=== PATIENT | female | born 1950 | race Caucasian/White ===

== ENCOUNTER 2020-05-02 12:59 | Emergency (ER) | payer MEDICARE, BC ==
[~2020-05-02] VITALS: Ht 170.2 cm; Wt 87.6 kg
[2020-05-02] MEDS ORDERED: DIPATR PO (14:54)
[2020-05-02] MEDS ORDERED: ONDA4ODT MM (14:54)
== END 2020-05-02 14:30 | disposition home or self-care (01) ==
LOC: ER 12:59
DX: F41.9 Anxiety disorder, unspecified (principal); Z76.0 Encounter for issue of repeat prescription
CPT/HCPCS: 99281

== ENCOUNTER → 2020-08-09 | Outpatient (CLI) | payer MEDICARE, BC ==
[~2020-08-09] MED LIST: DIPATR PO; ONDA4ODT MM
== END | disposition home or self-care (01) ==
LOC: LAB 14:55 → LAB SHORT 14:55
DX: N39.0 Urinary tract infection, site not specified (principal)
CPT/HCPCS: 87077; 87086; 87186

== ENCOUNTER → 2020-12-05 | Outpatient (CLI) | payer MEDICARE, BC ==
[~2020-12-05] MED LIST changes: +ALLO300 PO; +CLON1 PO; +DULO60 PO; +KLOR-CON M1010 MEQ PO; +LEVSOD75 PO; +METO5 PO; +OMEP20ER PO; +OXYB5 PO; +PANT40 PO; +QUET300 PO
== END ==
LOC: LAB SHORT 18:03 → LAB 18:03
DX: S91.102A Unspecified open wound of left great toe without damage to nail, initial encounter (principal); N39.0 Urinary tract infection, site not specified
CPT/HCPCS: 87070; 87075; 87077; 87086; 87186; 87205

== ENCOUNTER 2021-01-21 06:45 | Day surgery (SDC) | payer MEDICARE, BC ==
[~2021-01-21] VITALS: Ht 165.1 cm; Wt 87.2 kg
[~2021-01-21 06:45] MED LIST changes: -PANT40 PO
[2021-01-21] MEDS ORDERED: PANT40 PO (07:09)
== END 2021-01-21 09:01 | disposition home or self-care (01) ==
LOC: ORSCSDS 06:45
PROVIDERS: Ophthalmology
PROC: 08RK3JZ Replacement of Left Lens with Synthetic Substitute, Percutaneous Approach (ICD-10-PCS; principal; 2021-01-21 08:00)
DX: H25.12 Age-related nuclear cataract, left eye (principal); I10 Essential (primary) hypertension; K21.9 Gastro-esophageal reflux disease without esophagitis; E66.9 Obesity, unspecified; Z68.32 Body mass index [BMI] 32.0-32.9, adult; Z79.899 Other long term (current) drug therapy
CPT/HCPCS: A9270; J2001; J2250; J3010; J3301; J7040; V2632

== ENCOUNTER 2021-03-06 06:46 | Day surgery (SDC) | payer MEDICARE, BC ==
[~2021-03-06] VITALS: Ht 165.1 cm; Wt 87.4 kg
[~2021-03-06 06:46] MED LIST changes: +PANT40 PO
== END 2021-03-06 08:50 | disposition home or self-care (01) ==
LOC: ORSCSDS 06:46
PROVIDERS: Ophthalmology
PROC: 08RJ3JZ Replacement of Right Lens with Synthetic Substitute, Percutaneous Approach (ICD-10-PCS; principal; 2021-03-06 08:00)
DX: H25.11 Age-related nuclear cataract, right eye (principal); I10 Essential (primary) hypertension; K21.9 Gastro-esophageal reflux disease without esophagitis; N18.30 Chronic kidney disease, stage 3 unspecified; E03.9 Hypothyroidism, unspecified; Z79.899 Other long term (current) drug therapy
CPT/HCPCS: A9270; J2001; J2250; J3010; J3301; J7040; J7120; V2632

== ENCOUNTER → 2021-06-05 | Outpatient (CLI) | payer MEDICARE, BC | END | disposition home or self-care (01) | LOC: LAB 16:05 | DX: Z51.81 Encounter for therapeutic drug level monitoring (principal); Z79.899 Other long term (current) drug therapy ==

== ENCOUNTER → 2021-07-31 | Outpatient (CLI) | payer MEDICARE, BC | LOC: LAB 15:59 → LAB SHORT 15:59 | DX: N18.30 Chronic kidney disease, stage 3 unspecified (principal); D63.1 Anemia in chronic kidney disease; N25.81 Secondary hyperparathyroidism of renal origin; E55.9 Vitamin D deficiency, unspecified; E78.00 Pure hypercholesterolemia, unspecified; R76.9 Abnormal immunological finding in serum, unspecified; R94.5 Abnormal results of liver function studies; R94.6 Abnormal results of thyroid function studies; D51.8 Other vitamin B12 deficiency anemias; D52.8 Other folate deficiency anemias; D60.9 Acquired pure red cell aplasia, unspecified | CPT/HCPCS: 86335 ==

== ENCOUNTER → 2021-09-15 | Outpatient (CLI) | payer MEDICARE, BC ==
[2021-09-15 14:23] LABS: International Normalized Ratio 0.98; Prothrombin Time Results 10.3 Sec (9.7-11.5)
[2021-09-15 15:34] LABS: BASOPHILS ABSOLUTE AUTO 0.04 K/mm3 (0.00-0.23); BASOPHILS PERCENT AUTO 1 % (0-2); EOSINOPHILS ABSOLUTE AUTO 0.17 K/mm3 (0.00-0.68); EOSINOPHILS PERCENT AUTO 3 % (0-6); Hematocrit 33.1 % (33.0-51.0); Hemoglobin 10.6 g/dL (11.5-16.0); IMMATURE GRAN ABSOLUTE AUTO 0.01 K/mm3 (0.00-0.10); IMMATURE GRAN PERCENT AUTO 0 % (0-1); LYMPHOCYTES ABSOLUTE AUTO 1.61 K/mm3 (0.84-5.20); LYMPHOCYTES PERCENT AUTO 27 % (21-46); MONOCYTES PERCENT AUTO 8 % (4-13); Mean Corpuscular HGB 31.3 pg (26.0-34.0); Mean Corpuscular Volume 98 fL (80-100); Mean Platelet Volume 11.5 fL (9.1-12.4); NEUTROPHILS ABSOLUTE AUTO 3.66 K/mm3 (1.96-9.15); NEUTROPHILS PERCENT AUTO 61 % (41-73); Platelet Count 366 K/mm3 (150-400); RDW Coefficient Variation 13.8 % (11.7-14.2); RDW Standard Deviation 49.3 fL (35.1-46.3); Red Blood Cell Count 3.39 M/mm3 (3.80-5.20); White Blood Cell Count 5.99 K/mm3 (4.00-11.30)
== END | disposition home or self-care (01) ==
LOC: LAB SHORT 11:00
PROVIDERS: Physician Assistant
DX: M54.50 Low back pain, unspecified (principal); N18.9 Chronic kidney disease, unspecified
CPT/HCPCS: 85025; 85610; 85730

== ENCOUNTER → 2022-09-26 | Outpatient (CLI) | payer MEDICARE | END | disposition home or self-care (01) | LOC: LAB 09:28 → LAB SHORT 09:28 | PROVIDERS: Internal Medicine Nephrology | DX: N18.30 Chronic kidney disease, stage 3 unspecified (principal); D63.1 Anemia in chronic kidney disease; N25.81 Secondary hyperparathyroidism of renal origin; E55.9 Vitamin D deficiency, unspecified; E78.00 Pure hypercholesterolemia, unspecified; R76.9 Abnormal immunological finding in serum, unspecified; R94.5 Abnormal results of liver function studies; R94.6 Abnormal results of thyroid function studies | CPT/HCPCS: 81050 ==

== ENCOUNTER 2023-03-10 10:23 | Day surgery (SDC) | payer MEDICARE ==
[~2023-03-10] VITALS: Ht 170.2 cm; Wt 91.3 kg
[2023-03-10] VITALS (12 sets, daily range): BP systolic 96–139; BP diastolic 49–95
[~2023-03-10 10:23] MED LIST changes: +POTA10T PO
--- NOTE | 2023-03-10 11:20 | NUR ---
Ambulatory in Day Surgery.Pt. has mild dementia at baseline. Occasionally, confused. Currently, A&O x 4. History, Chart, Medications and Allergies reviewed before start of procedure.Patient confirms NPO status and agrees with scheduled surgery. Patient confirms NPO status and agrees with scheduled surgery. Patient reports completing Chlorhexadine shower X2 prior to admission to hospital. Surgical site prepped with 2% Chlorhexidine cloth wipe.
--- NOTE | 2023-03-10 14:44 | NUR ---
03/10/23 1444 Tianna Grant VANCOMYCIN 1GM GIVEN IN PERIOP PRIOR TO COMING BACK TO THE OR
--- NOTE | 2023-03-10 17:28 | NUR ---
PATIENT CAME BACK AT 1655 FROM PACU TODAY. POD 0 RIGHT TOTAL HIP PATIENT IS A&OX4. VS ARE WNL AND IS ON RA. PATIENT HAD A SPINAL DURING PROCEDURE AND IS REPORTING NUMBNESS FROM THE WAIST DOWN WITH NO PAIN. PEDAL PULSES ARE STRONG AND WARM TO THE TOUCH. ON HER RIGHT HIP SHE HAS 2 INCISIONS WITH FOAM AND GAUZE THAT IS C/D/I. PATIENT IS TOLERATING PO INTAKE. AT BEDSIDE. PATIENT IS LAYING IN BED WITH CALL LIGHT IN REACH.
[2023-03-11 00:11] VITALS: BP 115/70
[2023-03-11 04:16] VITALS: BP 138/81
[2023-03-11 04:29] LABS: BASOPHILS ABSOLUTE AUTO 0.01 K/mm3 (0.00-0.23); BASOPHILS PERCENT AUTO 0 % (0-2); EOSINOPHILS PERCENT AUTO 0 % (0-6); Hematocrit 30.3 % (33.0-51.0); Hemoglobin 10.1 g/dL (11.5-16.0); IMMATURE GRAN ABSOLUTE AUTO 0.08 K/mm3 (0.00-0.10); IMMATURE GRAN PERCENT AUTO 1 % (0-1); LYMPHOCYTES ABSOLUTE AUTO 0.51 K/mm3 (0.84-5.20); LYMPHOCYTES PERCENT AUTO 4 % (21-46); MONOCYTES PERCENT AUTO 5 % (4-13); Mean Corpuscular HGB 31.6 pg (26.0-34.0); Mean Corpuscular HGB Conc 33.3 g/dL (31.5-36.5); Mean Corpuscular Volume 95 fL (80-100); Mean Platelet Volume 9.9 fL (9.1-12.4); NEUTROPHILS ABSOLUTE AUTO 12.26 K/mm3 (1.96-9.15); NEUTROPHILS PERCENT AUTO 91 % (41-73); Platelet Count 396 K/mm3 (150-400); RDW Coefficient Variation 13.7 % (11.7-14.2); RDW Standard Deviation 47.6 fL (35.1-46.3); White Blood Cell Count 13.46 K/mm3 (4.00-11.30)
[2023-03-11 04:46] LABS: Calcium, Blood 9.4 mg/dL (8.5-10.1); Creatinine, Blood 1.12 mg/dL (0.40-1.00); Magnesium, Blood 1.6 mg/dL (1.6-2.4); Potassium, Blood 5.5 mmol/L (3.5-5.5)
--- NOTE | 2023-03-11 05:16 | NUR ---
SHIFT SUMMARY POD1 RIGHT MUKUND. DRESSINGS ARE C/D/I, BOTTOM DRESSING CHANGED D/T THE PT REMOVING IT WHILE SLEEPING. TOP DRESSING REINFORCED. SENSATION AND CIRCULATION REMAINS INTACT IN RLE. VSS. PT SLEPT WELL T/O THE NIGHT. MEDICATED FOR PAIN WTIH PRN AND SCHEDULED. PT AMBULATED TO THE BATHROOM MULTIPLE TIMES TO VOID T/O THE NIGHT, AND WAS ABLE TO AMBULATE TO THE HALLWAY ONCE WITH MINIMAL ASSISTANCE. PT REFUSED TO USE CRYO T/O THE NIGHT, BUT WAS AGREEABLE TO TRY IT DURING AM VITALS. NO ACUTE EVENTS NOTED. PLAN FOR PT TO WORK WITH PT THIS AM AND D/C HOME. THE PATIENT IS CURRENTLY RESTING, IN NO DISTRESS, CALL LIGHT IN REACH.
[2023-03-11 07:00] VITALS: BP 137/69
--- NOTE | 2023-03-11 07:45 | NUR ---
IN WITH PT TO CHANGE DRESSINGS
--- NOTE | 2023-03-11 11:43 | NUR ---
DISCHARGE SUMMARY POD 1 R TOTAL POSTERIOR HIP. DRESSING CHANGED THIS MORNING BY DR. KO DRESSINGS C/D/I. PT A&0X4. VS WNL AND SAT ABOVE 95% ON RA. DRESSED IN OWN CLOTHING WITH ALL PERSONAL BELONGINGS. LINES REMOVED. AMBULATING WITH FRONT WHEELED WALKER. POST OP EDUCATION GIVEN TO PT. PT NOT RECEPTIVE. PT STATES "I WILL DO IT MY OWN WAY", NOT FOLLOWING PRECAUTIONS: BENDING MORE THAN 90 DEGREES AT THE HIP, CROSSING LEGS. EDUCATION REINFORCED ON IMPORTANCE OF PRECAUTIONS. DISHCAGE INFORMATION GIVEN: HIP PRECAUSTION, PHYSCIAL THERAPY/DR FOLLOW-UP. PT D/C VIA WHEELCHAIR TO POV.
--- NOTE | 2023-03-11 14:25 | NUR ---
POSTERIOR HIP PRECAUTIONS PATIENT DID NOT WORK WELL WITH PT/OT DUE TO NOT FOLLOWING POSTERIOR HIP PRECAUTIONS. PATIENT WAS EDUCATED BY NURSING STAFF, SURGEON, PT, OT, QUALITY CONTROL CLERK, AND ORTHO DIRECTOR ON THE IMPORTANCE OF OBSERVING POSTERIOR HIP PRECAUTIONS AND HOW THEY ARE DIFFERENT THAN AN ANTERIOR APPROACH INCLUDING RISK OF DISLOCATING THE NEW JOINT AND WHAT THAT COULD LEAD DO IF IT HAPPENS. PATIENT KEPT INSISTING THAT SHE HAD DONE THIS BEFORE WITH HER LAST MUKUND AND SHE KNEW WHAT SHE WAS DOING AND THAT SHE WAS GOING TO DO IT HER WAY REGARDLESS OF WHAT WE WERE TELLING HER. SHE REPORTED BEING ANNOYED WITH STAFF REPEATING THE DIRECTIONS EVEN THOUGH SHE WAS ALSO EDUCATED ON THE REASON IT WAS REPEATED AND THAT IT WAS FOR HER SAFETY AND FOR THE BEST POSSIBLE OUTCOME FOR HER RECOVERY. DESPITE ALL THIS EDUCATION, SHE CONTINUED TO INSIST ON DOING IT HER OWN WAY.
== END 2023-03-11 11:44 | disposition home or self-care (01) ==
LOC: ORSCMMR 10:23 → ORD 14:15 → ORSCMMR 14:15 → SURS 16:40 → ORSCMMR 03-11 11:44 → ORD 03-17 14:30
PROVIDERS: Orthopaedic Surgery
PROC: 0SR90JA Replacement of Right Hip Joint with Synthetic Substitute, Uncemented, Open Approach (ICD-10-PCS; principal; 2023-03-10 14:15)
DX: M16.11 Unilateral primary osteoarthritis, right hip (principal); Z96.642 Presence of left artificial hip joint; Z96.653 Presence of artificial knee joint, bilateral; E03.9 Hypothyroidism, unspecified; F41.9 Anxiety disorder, unspecified; E66.9 Obesity, unspecified; Z68.35 Body mass index [BMI] 35.0-35.9, adult; F03.90 Unspecified dementia, unspecified severity, without behavioral disturbance, psychotic disturbance, mood disturbance, and anxiety; Z79.899 Other long term (current) drug therapy
CPT/HCPCS: 36415; 72170; 80048; 83735; 85025; 97110; 97116; 97162; 97165; 97530; 97535; A9270; C1713; C1776; J0171; J0690; J0735; J1100; J1885; J2250; J2405; J2704; J2795; J3010; J3370; J7050; J7120

== ENCOUNTER 2023-04-16 08:20 | Emergency (ER) | payer MEDICARE ==
[~2023-04-16] VITALS: Ht 172.7 cm; Wt 124.7 kg
[2023-04-16] MEDS ORDERED: Norco 5-325 Ta1 EACH PO (11:47)
[2023-04-16 12:31] VITALS: BP 136/67
== END 2023-04-16 12:32 | disposition home or self-care (01) ==
LOC: ER 08:20
DX: T84.020A Dislocation of internal right hip prosthesis, initial encounter (principal); W18.11XA Fall from or off toilet without subsequent striking against object, initial encounter; Y92.002 Bathroom of unspecified non-institutional (private) residence as the place of occurrence of the external cause
CPT/HCPCS: 27266; 73501; 73502; 73562-RT; 99284-25; A9270; J2704; J7030

== ENCOUNTER 2023-04-17 10:45 | Inpatient (IN) | payer MEDICARE ==
[~2023-04-17] VITALS: Ht 165.1 cm; Wt 95.0 kg
[~2023-04-17 10:45] MED LIST changes: +Norco 5-325 Ta1 EACH PO
[2023-04-17 11:16] LABS: BASOPHILS ABSOLUTE AUTO 0.05 K/mm3 (0.00-0.23); BASOPHILS PERCENT AUTO 1 % (0-2); EOSINOPHILS ABSOLUTE AUTO 0.18 K/mm3 (0.00-0.68); EOSINOPHILS PERCENT AUTO 2 % (0-6); Hematocrit 29.3 % (33.0-51.0); Hemoglobin 9.7 g/dL (11.5-16.0); IMMATURE GRAN ABSOLUTE AUTO 0.03 K/mm3 (0.00-0.10); IMMATURE GRAN PERCENT AUTO 0 % (0-1); LYMPHOCYTES ABSOLUTE AUTO 2.04 K/mm3 (0.84-5.20); LYMPHOCYTES PERCENT AUTO 23 % (21-46); MONOCYTES ABSOLUTE AUTO 0.72 K/mm3 (0.16-1.47); MONOCYTES PERCENT AUTO 8 % (4-13); Mean Corpuscular HGB 31.7 pg (26.0-34.0); Mean Corpuscular HGB Conc 33.1 g/dL (31.5-36.5); Mean Corpuscular Volume 96 fL (80-100); Mean Platelet Volume 10.2 fL (9.1-12.4); NEUTROPHILS ABSOLUTE AUTO 5.71 K/mm3 (1.96-9.15); NEUTROPHILS PERCENT AUTO 65 % (41-73); Platelet Count 334 K/mm3 (150-400); RDW Coefficient Variation 14.6 % (11.7-14.2); RDW Standard Deviation 50.6 fL (35.1-46.3); Red Blood Cell Count 3.06 M/mm3 (3.80-5.20); White Blood Cell Count 8.73 K/mm3 (4.00-11.30)
[2023-04-17 11:37] LABS: Albumin, Blood 3.4 g/dL (3.4-5.0); Bilirubin, Total 0.4 mg/dL (0.1-1.0); Bun/Creatinine Ratio 14.8 (12.0-20.0); Calcium, Blood 9.1 mg/dL (8.5-10.1); Creatinine, Blood 1.35 mg/dL (0.40-1.00); Globulin, Blood 3.4 g/dL (2.2-4.0); Potassium, Blood 4.1 mmol/L (3.5-5.5); Total Protein, Blood 6.8 g/dL (6.4-8.2)
[2023-04-17 18:11] VITALS: BP 136/53
--- NOTE | 2023-04-17 18:15 | NUR ---
ARRIVAL PATIENT TO ROOM 213 VIA GURNEY. TRANSFERRED TO BED VIA SLIDER SHEET, CHANGED IN TO [facility]. IMMOBILIZERTO RIGHT KNEE REMOVED TO ASSES SKIN AND REPLACED WAS. PATIENT A&O X4, LUNGS CLEAR, DIM IN BASES, VSS ON RA. DECLINED DINNER TRAY, ASKED FOR JELLO INSTEAD. IV TO Yumi BIRCH, TRUONG PER ORDERS. PATIENT DECLINES PAIN MEDS AT THIS TIME. ORIENTED TO ROOM & CALL LIGHT, IN REACH. WILL REPORT TO ONCOMING RN AT 1900.
--- NOTE | 2023-04-17 18:30 | NUR ---
DR MAGALLANES NOTIFIED THIS RN OF UNSUCCESSFUL ARTHOCENTESIS OF R HIP (PER REQUEST OF DR MEZA) & WAS UNALE TO REACH DR MEZA AT TIME, MESSAGE LEFT.
[2023-04-17 19:47] VITALS: BP 139/69
[2023-04-18 03:16] VITALS: BP 111/93
[2023-04-18 03:27] LABS: BASOPHILS ABSOLUTE AUTO 0.05 K/mm3 (0.00-0.23); BASOPHILS PERCENT AUTO 1 % (0-2); EOSINOPHILS ABSOLUTE AUTO 0.32 K/mm3 (0.00-0.68); EOSINOPHILS PERCENT AUTO 4 % (0-6); Hematocrit 26.9 % (33.0-51.0); Hemoglobin 8.8 g/dL (11.5-16.0); IMMATURE GRAN ABSOLUTE AUTO 0.01 K/mm3 (0.00-0.10); IMMATURE GRAN PERCENT AUTO 0 % (0-1); LYMPHOCYTES ABSOLUTE AUTO 1.68 K/mm3 (0.84-5.20); LYMPHOCYTES PERCENT AUTO 20 % (21-46); MONOCYTES ABSOLUTE AUTO 0.94 K/mm3 (0.16-1.47); MONOCYTES PERCENT AUTO 11 % (4-13); Mean Corpuscular HGB 31.2 pg (26.0-34.0); Mean Corpuscular HGB Conc 32.7 g/dL (31.5-36.5); Mean Corpuscular Volume 95 fL (80-100); NEUTROPHILS ABSOLUTE AUTO 5.38 K/mm3 (1.96-9.15); NEUTROPHILS PERCENT AUTO 64 % (41-73); Platelet Count 293 K/mm3 (150-400); RDW Coefficient Variation 14.5 % (11.7-14.2); RDW Standard Deviation 50.2 fL (35.1-46.3); Red Blood Cell Count 2.82 M/mm3 (3.80-5.20); White Blood Cell Count 8.38 K/mm3 (4.00-11.30)
[2023-04-18 03:44] LABS: Bun/Creatinine Ratio 14.7 (12.0-20.0); Calcium, Blood 8.6 mg/dL (8.5-10.1); Creatinine, Blood 0.96 mg/dL (0.40-1.00)
--- NOTE | 2023-04-18 06:41 | NUR ---
SHIFT SUMMARY R HIP DISLOCATION FOLLOWING R TOTAL HIP 03/10. PT DENIES N/T, PEDAL PULSES PALPITABLE. IMMOBILIZER TO R LEG. VSS, MEDICATED FOR PAIN X2 T/O NIGHT. JOE DRAINING LARGE AMT YELLOW URINE. PO INTAKE TOLERATED WELL, NO N/V REPORTED. F/U W/ DR MEZA FOR FURTHER TX PLANS. PT SLEPT T/O NIGHT, NO DISTRESS, CALL LIGHT W/IN REACH.
[2023-04-18 07:16] VITALS: BP 103/47
[2023-04-18 07:17] VITALS: BP 105/46
[2023-04-18 08:13] VITALS: BP 112/52
--- NOTE | 2023-04-18 10:49 | NUR ---
AT BEDSIDE DR MAGALLANES AT BEDSIDE. THIS RN DISCUSSED REDNESS NOTED TO RIGHT HIP, NO NEW ORDERS GIVEN REGARDING THIS, PLAN TO KEEP AN EYE ON IT & CONTINUE TO REASSESS T/O SHIFT. DR MAGALLANES STATED THE IMMOBILIZER TO R KNEE COULD BE REMOVED, MD WAS USNURE WHY IT WAS PLACED INITIALLY. THIS RN REMOVED AT THIS TIME. PLAN TO WAIT FOR DR MEZA TO SEE PATIENT.
--- NOTE | 2023-04-18 10:59 | NUR ---
PATIENT STATED TO THIS RN "I DONT KNOW WHY THIS SURGERY HAD TO BE SO FAR BACK ON MY HIP AND NOW LOOK ITS CAUSED SO MANY PROBLEMS. WHY COULDNT HE JUST DO IT UP HERE LIKE THE LAST HIP". THIS RN EXPLAINED THERE ARE DIFFERENT APPROACHES WITH DIFFERENT INDICATIONS/REASONINGS FOR HIP REPLACEMENTS. PATIENT ROLLED HER EYES AND STATED "WELL THIS ONE IS NOTHING LIKE THE LAST ONE". THIS RN EMPHASIZED THE IMPORTANCE OF FOLLOWING THE POSTERIOR HIP PRECAUTIONS STRICTLY FOR 3 MONTHS FOLLOWING THE SURGERY & EXPLAINED THE 3 PRECAUTIONS. THE PATIENT STATED, "WHAT DO YOU MEAN I WASNT SUPPOSED TO BEND PAST 90 DEGREES". THIS RN DEMONSTARTED AND PATIENT ROLLED HER EYES & LAUGHED STATING "I DO THE BEST I CAN AT HOME, I HAVE TO SIT AND STAND, I HAVE TO PUT MY SOCKS ON. THEY TRIED TELLING ME ALL THAT WHEN I WAS HERE BUT I DID WHAT I HAD TO DO". THIS RN ENDED THE DISCUSSION WITH STATING "WE WILL SEE WHAT THE PLAN FROMTHE ORTHOPEDIC DOCTOR WILL BE MOVING FORWARD".
[2023-04-18 14:44] VITALS: BP 106/73
--- NOTE | 2023-04-18 18:34 | NUR ---
SHIFT SUMMARY NO ACUTE CHANGES THIS SHIFT. RIGHT HIP DISLOCATION, AWAITING PLAN FROM ORTHO DOCTOR, MESSAGE WAS LEFT WITH DR MEZA. REDNESS NOTED TO R HIP AROUND MUKUND SCAR. PAIN MANAGED PER EMAR. EATING & DRINKING WELL. JOE CATH INPLACE DRAINING WELL TO GRAVITY. CALLS DAVIDE, IN REACH. WILL REPORT TO ONCOMING RN AT 1900.
[2023-04-18 19:14] VITALS: BP 127/80
[2023-04-19] VITALS (16 sets, daily range): BP systolic 122–158; BP diastolic 52–100
--- NOTE | 2023-04-19 06:37 | NUR ---
SHIFT SUMMARY HIP DISPLACEMENT, AWAITING ORTHO CONSULT. PT DENIES N/T, N/V, OR SOB. PEDAL PULSES PALPITABLE BL, WARM TO TOUCH. MEDICATED FOR PAIN X1 THIS SHIFT. PT REQUESTING CLONAZEPAM AND ENCOURAGED TO ALTERNATE W/ PAIN MEDS. PT AGREED. REPORTS SOME ANXIETY R/T PCP VISIT AND PLANS. IMMOBILIZER IN PLACE TO RIGHT LEG, REDNESS AND SWELLING TO RIGHT HIP SURROUNDING SURGICAL SCAR. OUTLINED FOR MEASUREMENTS, AND APPEARS TO HAVE DECREASED T/O NIGHT. NO DISTRESS THIS SHIFT, CALL LIGHT W/IN REACH.
[2023-04-19 09:06] LABS: BASOPHILS ABSOLUTE AUTO 0.04 K/mm3 (0.00-0.23); BASOPHILS PERCENT AUTO 0 % (0-2); EOSINOPHILS ABSOLUTE AUTO 0.21 K/mm3 (0.00-0.68); EOSINOPHILS PERCENT AUTO 2 % (0-6); Hematocrit 26.7 % (33.0-51.0); Hemoglobin 8.8 g/dL (11.5-16.0); IMMATURE GRAN ABSOLUTE AUTO 0.03 K/mm3 (0.00-0.10); IMMATURE GRAN PERCENT AUTO 0 % (0-1); LYMPHOCYTES ABSOLUTE AUTO 1.54 K/mm3 (0.84-5.20); LYMPHOCYTES PERCENT AUTO 17 % (21-46); MONOCYTES ABSOLUTE AUTO 0.92 K/mm3 (0.16-1.47); MONOCYTES PERCENT AUTO 10 % (4-13); Mean Corpuscular HGB 31.4 pg (26.0-34.0); Mean Corpuscular Volume 95 fL (80-100); NEUTROPHILS ABSOLUTE AUTO 6.17 K/mm3 (1.96-9.15); NEUTROPHILS PERCENT AUTO 69 % (41-73); Platelet Count 342 K/mm3 (150-400); RDW Coefficient Variation 14.6 % (11.7-14.2); RDW Standard Deviation 50.3 fL (35.1-46.3); White Blood Cell Count 8.91 K/mm3 (4.00-11.30)
[2023-04-19 09:21] LABS: Anion Gap 6 mmol/L (6-16); Blood Urea Nitrogen 12 mg/dL (8-24); Bun/Creatinine Ratio 13.4 (12.0-20.0); CO2, Blood 27 mmol/L (21-32); Calcium, Blood 8.9 mg/dL (8.5-10.1); Chloride, Blood 101 mmol/L (98-108); Creatinine, Blood 0.89 mg/dL (0.40-1.00); Glomerular Filtration Rate 68 (60-); Glucose, Blood 99 mg/dL (70-99); Phosphorus, Blood 3.1 mg/dL (2.5-4.9); Potassium, Blood 4.2 mmol/L (3.5-5.5); Sodium, Blood 134 mmol/L (136-145)
--- NOTE | 2023-04-19 14:25 | NUR ---
Surgical site prepped with 2% Chlorhexidine cloth wipe. History, Chart, Medications and Allergies reviewed before start of procedure.Lungs clear T/O to Auscultation. Patient confirms NPO status and agrees with scheduled surgery. DID NOT PUT ON PAS OR TREE HOSE DUE TO PAIN.
[2023-04-19 15:45] LABS: PCO2 Arterial 40.2 mmHg (35-45); PO2 Arterial 461 mmHg (80-100)
[2023-04-19 16:31] LABS: PCO2 Arterial 42.3 mmHg (35-45); PO2 Arterial 358 mmHg (80-100); pH Blood Arterial 7.38 (7.35-7.45)
[2023-04-19 17:04] LABS: BODY FLUID RBC 0.964 M/mm3 (0-0)
[2023-04-19 17:40] LABS: WBC Count, Synovial Fluid 10240 /mm3 (0-180)
[2023-04-19 17:41] LABS: RBC Count, Synovial Fluid 964000 /mm3 (0-0)
[2023-04-19 17:51] LABS: Appearance, Synovial Fluid Bloody (Clear); Color, Synovial Fluid Red (None-P Yel)
[2023-04-19 18:28] LABS: Eos, Synovial Fluid 1 % (0-2); Lymphs, Synovial Fluid 4 % (0-15); Monocytes/Macrophages, Synovia 3 % (0-65); Neutrophils, Synovial Fluid 94 % (0-24)
--- NOTE | 2023-04-19 19:27 | NUR ---
SHIFT SUMMARY PT WENT TO O.R. AT 1330. SHE WAS A&OX4, VSS/RA, NPO, PAIN MANAGED, AT BEDSIDE. PT RETURNED FROM O.R. AT 1900, REPORT TO RACHANA ENRIQUEZ.
[2023-04-19 20:06] LABS: Hematocrit 27.1 % (33.0-51.0)
[2023-04-20 00:06] VITALS: BP 131/60
[2023-04-20 04:08] LABS: BASOPHILS ABSOLUTE AUTO 0.02 K/mm3 (0.00-0.23); BASOPHILS PERCENT AUTO 0 % (0-2); EOSINOPHILS PERCENT AUTO 0 % (0-6); Hemoglobin 7.9 g/dL (11.5-16.0); IMMATURE GRAN PERCENT AUTO 1 % (0-1); LYMPHOCYTES ABSOLUTE AUTO 0.79 K/mm3 (0.84-5.20); LYMPHOCYTES PERCENT AUTO 8 % (21-46); MONOCYTES ABSOLUTE AUTO 0.56 K/mm3 (0.16-1.47); MONOCYTES PERCENT AUTO 6 % (4-13); Mean Corpuscular HGB 31.3 pg (26.0-34.0); Mean Corpuscular HGB Conc 34.3 g/dL (31.5-36.5); Mean Corpuscular Volume 91 fL (80-100); Mean Platelet Volume 10.5 fL (9.1-12.4); NEUTROPHILS ABSOLUTE AUTO 8.37 K/mm3 (1.96-9.15); NEUTROPHILS PERCENT AUTO 85 % (41-73); Platelet Count 348 K/mm3 (150-400); RDW Standard Deviation 46.8 fL (35.1-46.3); Red Blood Cell Count 2.52 M/mm3 (3.80-5.20); White Blood Cell Count 9.84 K/mm3 (4.00-11.30)
[2023-04-20 04:46] VITALS: BP 134/68
--- NOTE | 2023-04-20 04:58 | NUR ---
SHIFT SUMMARY A/O X4- BEDREST THROUGHOUT SHIFT- POD1 R TOTAL HIP REVISION, FOAM BULKY TAPE DRESSING IN PLACE, C/D/I. VITAL SIGNS STABLE. PAIN MANAGED W/ PO PAIN MEDICATIONS. IMMOBILIZER AND WEDGE IN PLACE THROUGHOUT SHIFT. PLEASANT AND COOPERATIVE W/ CARE. WILL REPORT TO ONCOMING RN.
[2023-04-20 05:32] LABS: Bun/Creatinine Ratio 14.1 (12.0-20.0); Calcium, Blood 8.3 mg/dL (8.5-10.1); Creatinine, Blood 0.92 mg/dL (0.40-1.00); Magnesium, Blood 1.5 mg/dL (1.6-2.4); Potassium, Blood 4.9 mmol/L (3.5-5.5)
[2023-04-20 07:00] VITALS: BP 147/69
--- NOTE | 2023-04-20 10:33 | NUR ---
04/20/23 1033 Gris Montoya VERIFICATIONS: EDIT CHART.
[2023-04-20 14:02] LABS: Vancomycin, Random 21.1 ug/mL
[2023-04-20 15:56] VITALS: BP 125/65
--- NOTE | 2023-04-20 17:15 | NUR ---
SHIFT SUMMARY PT A&OX4, VSS/RA, CHEKO PO, VOIDING POST-JOE REMOVAL TODAY/INCONTINENT-ATTENDS ON, PAIN MANAGED, AMB MOD ASSIST WITH FWW/GB/UP TO CHAIR. PICC BEING PLACED AT THIS TIME; NO OTHER IV ACCESS AT THIS TIME. WILL REPORT TO NEXT RN.
[2023-04-20 19:11] VITALS: BP 116/58
--- NOTE | 2023-04-20 21:53 | NUR ---
ASSUMPTION OF CARE ASSUMED CARE OF PT. THE PATIENT IS CURRENTLY SLEEPING, IN NO DISTRESS, BE ALARM ON FOR SAFETY, CALL LIGHT IN REACH
[2023-04-21] VITALS (11 sets, daily range): BP systolic 107–134; BP diastolic 48–83
--- NOTE | 2023-04-21 04:29 | NUR ---
SHIFT SUMMARY POD2 RIGHT TOTAL HIP REVISION. DRESSING CHANGED AFTER AM VITALS, AQUACEL WAS SATURATED WTIH SANGUINEOUS FLUID. INCISION NOTED TO HAVE NO PURULENCE. REDDNESS NOTED AROUND AQUACEL. INCISION CLEANED WITH PEROXIDE. CIRCULATION AND SENSATION REMAINS INTACT IN RLE. IMMOBILIZER AND ABDUCTOR WEDGE IN PLACE. VSS. PT SLEPT WELL T/O THE NIGHT. MEDICATED FOR PAIN WTIH SCHEDULED AND PRN MEDICATION. PT DID NOT GET OOB. ONE VOID NOTED THIS SHIFT, PLAN TO BLADDER SCAN. PT REPORTS NOT NEEDING TO VOID. PT REPOSITIONED TOLLERATED. PLAN FOR PT TO D/C TO SNF WHEN MEDICALLY CLEARED AND TO CONTINUE TO IV ABX. THE PATIENT IS CURRENTLY RESTING, IN NO DISTRESS, CALL LIGHT IN REACH
[2023-04-21 04:56] LABS: BASOPHILS ABSOLUTE AUTO 0.03 K/mm3 (0.00-0.23); BASOPHILS PERCENT AUTO 0 % (0-2); EOSINOPHILS ABSOLUTE AUTO 0.22 K/mm3 (0.00-0.68); EOSINOPHILS PERCENT AUTO 3 % (0-6); Hematocrit 19.8 % (33.0-51.0); Hemoglobin 6.6 g/dL (11.5-16.0); IMMATURE GRAN ABSOLUTE AUTO 0.03 K/mm3 (0.00-0.10); IMMATURE GRAN PERCENT AUTO 0 % (0-1); LYMPHOCYTES ABSOLUTE AUTO 2.19 K/mm3 (0.84-5.20); LYMPHOCYTES PERCENT AUTO 26 % (21-46); MONOCYTES ABSOLUTE AUTO 0.73 K/mm3 (0.16-1.47); MONOCYTES PERCENT AUTO 9 % (4-13); Mean Corpuscular HGB 31.1 pg (26.0-34.0); Mean Corpuscular HGB Conc 33.3 g/dL (31.5-36.5); Mean Corpuscular Volume 93 fL (80-100); Mean Platelet Volume 10.5 fL (9.1-12.4); NEUTROPHILS ABSOLUTE AUTO 5.09 K/mm3 (1.96-9.15); NEUTROPHILS PERCENT AUTO 61 % (41-73); Platelet Count 334 K/mm3 (150-400); RDW Coefficient Variation 14.1 % (11.7-14.2); RDW Standard Deviation 48.4 fL (35.1-46.3); Red Blood Cell Count 2.12 M/mm3 (3.80-5.20); White Blood Cell Count 8.29 K/mm3 (4.00-11.30)
--- NOTE | 2023-04-21 13:18 | NUR ---
FIRST UNIT OF PRBC'S TRANSFUSED AND 20MG LASIX GIVEN PER DR. MOODY. PT HAS FINE CRACKLES AT BILAT BASES OF LUNGS, NO COMPLAINT OF SOB, SP02 HAS REMAINED STABLE, DR. MAGALLANES IS AWARE. PT ENCOURAGED TO DEEP BREATHE AND USE I.S. 2ND UNIT OF PRBC'S NOW TRANSFUSING, PT TOLERATING WELL.
--- NOTE | 2023-04-21 19:11 | NUR ---
SUMMARY: PT IS POD2 R HIP I&D. A/O, VSS. PT AMBULATORY TODAY AND HAS DENIED DIZZINESS. VOIDING WELL. 2 UNITS PRBC'S TRANSFUSED. DRESSING SATURATED AT R HIP SURGICAL SITE. INCISION CLEANSED AND AQUCEL DRESSING CHANGED X3 THIS SHIFT[address] MEZA AWARE OF BLEEDING. SUTURES ARE INTACT AT SURGICAL SITE, SOME SWELLING PRESENT, NO REDNESS NOTED. PAIN SEEMS WELL MANAGED WITH 5MG OXYCODONE. ANTIBIOTIC INFUSED VIA PICC LINE. PT REFUSED ICE PACK USE TODAY. PLAN IS FOR NPO AT 0000 AND POSSIBLE I&D TOMORROW. REPORT PASSED TO NOC RN.
[2023-04-22] VITALS (13 sets, daily range): BP systolic 109–165; BP diastolic 60–91
--- NOTE | 2023-04-22 05:10 | NUR ---
EOS NOTE PATIENT A/OX4, MENTATION AND SPEECH CLEAR. UP TO THE BATHROOM ONE ASSIST WITH FWW/GB X3 TIMES. PATIENT DOES NOT ADHERE TO POSTERIOR HIP PRECAUTIONS LAID OUT BY MD AND RN. EDUCATED ON THE IMPORTANCE OF ADHERING TO SAFETY PRACTICES, PATIENT STATED "THE DOC SAID I DON'T HAVE TO USE THE PINK PILLOW AND THE BRACE IS FINE THERE." BRACE BOTTOM WAS AT HER ANKLE, REPLACED BRACE TO APPROPRIATE PLACE BUT PT REFUSED ABDUCTOR PILLOW. CHARGE NURSE AWARE, MDS AWARE PER PREVIOUS NOTES. DRESSING CHANGED AT 1900 WITH PREVIOUS SHIFT AND AGAIN AT 0100, DRESSING IS C/D/I AT THIS TIME WITH MINOR DRAINING NOTED. ABOVE SURGICAL SITE A HARD LUMP WAS NOTED BY PREVIOUS SHIFT AND THIS RN. NO CHANGES TO LUMP SIZE. VSS, PATIENT ENDORED HAVING PAIN ONCE ON THIS SHIFT AND WAS MEDICATED APPROPRIATELY. RESTED QUIETLY MOST OF THE NIGHT WITH NO COMPLAINTS.
[2023-04-22 07:10] LABS: BASOPHILS ABSOLUTE AUTO 0.07 K/mm3 (0.00-0.23); BASOPHILS PERCENT AUTO 1 % (0-2); EOSINOPHILS ABSOLUTE AUTO 0.38 K/mm3 (0.00-0.68); EOSINOPHILS PERCENT AUTO 5 % (0-6); Hemoglobin 8.2 g/dL (11.5-16.0); IMMATURE GRAN ABSOLUTE AUTO 0.02 K/mm3 (0.00-0.10); IMMATURE GRAN PERCENT AUTO 0 % (0-1); LYMPHOCYTES ABSOLUTE AUTO 1.86 K/mm3 (0.84-5.20); LYMPHOCYTES PERCENT AUTO 25 % (21-46); MONOCYTES ABSOLUTE AUTO 0.88 K/mm3 (0.16-1.47); MONOCYTES PERCENT AUTO 12 % (4-13); Mean Corpuscular HGB 30.4 pg (26.0-34.0); Mean Corpuscular HGB Conc 34.2 g/dL (31.5-36.5); Mean Corpuscular Volume 89 fL (80-100); Mean Platelet Volume 9.9 fL (9.1-12.4); NEUTROPHILS ABSOLUTE AUTO 4.18 K/mm3 (1.96-9.15); NEUTROPHILS PERCENT AUTO 57 % (41-73); Platelet Count 358 K/mm3 (150-400); RDW Coefficient Variation 16.2 % (11.7-14.2); RDW Standard Deviation 53.4 fL (35.1-46.3); White Blood Cell Count 7.39 K/mm3 (4.00-11.30)
--- NOTE | 2023-04-22 14:06 | NUR ---
PATIENT TO DAY SURGERY VIA BED
--- NOTE | 2023-04-22 17:20 | NUR ---
PATIENT RETURNED TO ROOM FROM PACU WOUND VAC TO RIGHT HIP S/P I&D. SOME REDNESS NOTED AROUND WOUND VAC. PATIENT REPORTS INTERMITENT SHARP PAINS TO RIGHT HIP, EDUCATED ON WOUND VAC THERAPY. VSS, ON 2L O2 AT THIS TIME. PLAN TO WEAN NEEDED. CALL LIGHT IN REACH.
[2023-04-22 20:25] LABS: Creatinine, Blood 1.25 mg/dL (0.40-1.00); Vancomycin, Trough 19.2 ug/mL (5.0-10.0)
[2023-04-23 00:03] VITALS: BP 136/64
[2023-04-23 04:39] VITALS: BP 122/61
--- NOTE | 2023-04-23 06:23 | NUR ---
EOS NOTE: POD# 1 FOR IND WITH WOUND VAC PLACEMENT 04/22. WOUND VAC HAS NO OUTPUT SO FAR. PATIENT STATES SHE IS "10 TIMES MORE COMFORTABLE" AND HAS LESS PAIN THAN BEFORE THE 04/22 PROCEDURE. AMBULATED X1 FWW/GB TO THE BATHROOM, USED THE CALL LIGHT APPROPRIATELY. A/OX4, EDUCATED ON THE IMPORTANCE OF ADHERING TO POST HIP PRECAUTIONS PATIENT MOVES BRACE DOWN TO HER ANKLE FOR COMFORT AND DOES NOT FOLLOW PRECAUTIONS ON AMBULATION. PATIENT STATED "THE DOCTOR SAID I DON'T HAVE TO." PER MD NOTE, MD ALSO EDUCATED PATIENT ON POST HIP PRECAUTIONS. VSS. UNEVENTFUL PM SHIFT FOR PT.
[2023-04-23 07:21] VITALS: BP 143/78
--- NOTE | 2023-04-23 12:56 | NUR ---
04/23/23 1256 Gris Montoya VERIFICATIONS: EDIT CHART.
[2023-04-23 14:43] VITALS: BP 135/68
--- NOTE | 2023-04-23 18:17 | NUR ---
PT UP IN CHAIR AND AMBULATING IN HALLWAY WITH STANDBY ASSIST. PT DENIES PAIN TO HIP. WOUND VAC IN PLACE AND MAINTAINING SEAL, NO DRAINAGE. PT HOPING FOR DISCHARGE IN AM
--- NOTE | 2023-04-23 18:33 | NUR ---
PTS HERE TO VISIT. PT CRYING AND TELLS ME SHE WANTS TO GO HOME AND IS NOT GOING TO GO TO SNF. SPOKE WITH SUPERVISOR REAL ESTATE OFFICE REGARDING PATIENT WISHES. CAREMANAGER WILL BE IN TO SEE PATIENT TOMORROW TO DISCUSS DISCHARGE PLANS. INFORMED PATIENT AND HER THAT SUPERVISOR REAL ESTATE OFFICE WILL SPEAK WITH PATIENT TOMORROW
[2023-04-23 19:27] VITALS: BP 154/66
[2023-04-24 04:31] VITALS: BP 135/69
[2023-04-24 04:51] LABS: Hematocrit 26.1 % (33.0-51.0); Hemoglobin 8.7 g/dL (11.5-16.0); Mean Corpuscular HGB 30.3 pg (26.0-34.0); Mean Corpuscular HGB Conc 33.3 g/dL (31.5-36.5); Mean Corpuscular Volume 91 fL (80-100); Mean Platelet Volume 9.5 fL (9.1-12.4); Platelet Count 469 K/mm3 (150-400); RDW Coefficient Variation 15.8 % (11.7-14.2); RDW Standard Deviation 52.1 fL (35.1-46.3); Red Blood Cell Count 2.87 M/mm3 (3.80-5.20); White Blood Cell Count 10.04 K/mm3 (4.00-11.30)
[2023-04-24 05:14] LABS: Albumin, Blood 2.9 g/dL (3.4-5.0); Anion Gap 7 mmol/L (6-16); Blood Urea Nitrogen 18 mg/dL (8-24); Bun/Creatinine Ratio 13.2 (12.0-20.0); CO2, Blood 24 mmol/L (21-32); Calcium, Blood 11.1 mg/dL (8.5-10.1); Chloride, Blood 103 mmol/L (98-108); Creatinine, Blood 1.36 mg/dL (0.40-1.00); Glomerular Filtration Rate 41 (60-); Glucose, Blood 90 mg/dL (70-99); Phosphorus, Blood 2.9 mg/dL (2.5-4.9); Potassium, Blood 4.6 mmol/L (3.5-5.5); Sodium, Blood 134 mmol/L (136-145); Vancomycin, Random 21.4 ug/mL
--- NOTE | 2023-04-24 06:08 | NUR ---
SHIFT SUMMARY NO ACUTE CHANGES OVERNIGHT, PT HAS RESTED T/O SHIFT AND HAS DENIED PAIN OR NEEDS DURING ROUNDS. IMMOBILIZER IN PLACE TO RIGHT LEG, PT REFUSES TO USE ABDUCTION PILLOW WHILE IN BED. PT HAS BEEN UP AND AMBULATING TO THE BATHROOM WITH MINIMAL ASSISTANCE. WOUND VAC IN PLACE TO RIGHT HIP WITH A SMALL AMOUNT OF SS DISCHARGE. PT DENIES N/T IN AFFECTED EXT ABLE TO WIGGLE TOES. PT EAGERLY ANTICIPAITING DC. BED IN LOWEST POSITION, CALL LIGHT WITHIN REACH.
[2023-04-24 08:54] VITALS: BP 129/62
[2023-04-24 14:17] VITALS: BP 128/65
--- NOTE | 2023-04-24 17:09 | NUR ---
SHIFT SUMMARY PT POD #2 FOR R HIP REVISION W/I&D. WOUND VAC IN PLACE AND CDI. SMALL AMOUNT OF SS DRAINAGE NOTED IN WOUND VAC. PT WORKED WITH PHYSICAL THERAPY AND GETS UP WITH A SBA W/FWW/GB. PT UP IN RECLINER FOR THE MAJORITY OF THE SHIFT. A/O X3 BUT FORGETFUL AT TIMES AND DOES NOT ADHERE TO HIP PRECAUTIONS. VSS.
[2023-04-24 20:51] VITALS: BP 129/55
[2023-04-24 22:56] LABS: Vancomycin, Random 14.5 ug/mL
[2023-04-25 03:21] VITALS: BP 116/63
[2023-04-25 06:59] VITALS: BP 134/70
[2023-04-25 07:21] LABS: Hematocrit 26.1 % (33.0-51.0); Hemoglobin 8.5 g/dL (11.5-16.0); Mean Corpuscular HGB 30.1 pg (26.0-34.0); Mean Corpuscular HGB Conc 32.6 g/dL (31.5-36.5); Mean Corpuscular Volume 93 fL (80-100); Mean Platelet Volume 9.4 fL (9.1-12.4); Platelet Count 463 K/mm3 (150-400); RDW Coefficient Variation 15.8 % (11.7-14.2); RDW Standard Deviation 53.7 fL (35.1-46.3); Red Blood Cell Count 2.82 M/mm3 (3.80-5.20); White Blood Cell Count 6.81 K/mm3 (4.00-11.30)
--- NOTE | 2023-04-25 07:30 | NUR ---
SHIFT SUMMARY NO ACUTE CHANGES NOTED THROUGH THE NIGHT, A&O X3, ON RA, VSS, PAIN MNGD PER EMAR, SBA USING FWW/GB. LEG IMMOBILIZER IN PLACE, REFUSED TO USE WEDGE IN BED, CALLS FOR ASSISTANCE PRN, NO NEW DRAINAGE NOTED IN WOUND CANISTER, POLAR PACK IN PLACE, REPORT GIVEN TO DAY RN, CALL LIGHT IN REACH
[2023-04-25 07:42] LABS: Albumin, Blood 2.7 g/dL (3.4-5.0); Anion Gap 6 mmol/L (6-16); Blood Urea Nitrogen 15 mg/dL (8-24); Bun/Creatinine Ratio 12.8 (12.0-20.0); CO2, Blood 24 mmol/L (21-32); Calcium, Blood 10.8 mg/dL (8.5-10.1); Chloride, Blood 106 mmol/L (98-108); Creatinine, Blood 1.17 mg/dL (0.40-1.00); Glomerular Filtration Rate 49 (60-); Glucose, Blood 85 mg/dL (70-99); Phosphorus, Blood 3.4 mg/dL (2.5-4.9); Potassium, Blood 4.6 mmol/L (3.5-5.5); Sodium, Blood 136 mmol/L (136-145)
[2023-04-25 14:49] VITALS: BP 139/65
--- NOTE | 2023-04-25 15:18 | NUR ---
WOUND VAC DSG CHANGE PT'S WOUND VAC WAS "STEPPED ON" DURING THERAPY TODAY PER DELFINA,PT, AIR LEAK NOTED ON THE MONITOR, DSG REINFORCED BUT WAS UNABLE TO ACHIEVE THERAPEUTIC SUCTION, COMPLETE WOUND VAC DSG CHANGE DONE, GOOD SUCTION NOTED ON MONITOR, PT TOLERATED WELL.
--- NOTE | 2023-04-25 17:01 | NUR ---
SUMMARY PT UP TO CHAIR MOST OF THE DAY, AMBULATED DOWN THE [place] X2, WORKED W/ PT, DENIED ANY NEED FOR PAIN MEDS UNTIL AFTER PT SESSION, C/O PAIN ON R HIP AREA AND DOWN R KNEE AREA, HAD AIR LEAK IN WOUND VAC DSG, COMPLETE DSG CHANGE DONE, SLEPT OFF AN ON THIS AFTERNOON, AT BEDSIDE, PT HAS REQUIRED VERBAL CUES TO AMBULATE AND DO TRANSFERS SAFELY, SEEMS TO FORGET SAFETY PRECAUTIONS, MEDICATED FOR PAIN, RESTING IN BED W/ POLAR PACK ON R KNEE, NO OTHER CHANGES THIS SHIFT.
[2023-04-25 20:08] VITALS: BP 129/53
[2023-04-26 02:26] LABS: Vancomycin, Random 15.9 ug/mL
[2023-04-26 06:00] VITALS: BP 99/50
--- NOTE | 2023-04-26 06:31 | NUR ---
POD 4 S/P REPEAT I&D OF R HIP. PT VSS T/O NIGHT. WOUND VAC W/SCANT SS DRNG; SEAL AND SX INTACT. MILD REDNESS NOTED AROUND R HIP. PT REP PAIN MINIMAL, DECLINED NEED FOR PAIN MEDS. PT DENEID N/T, PEDAL PULSES AND CAP REFILL WNL. PT CHEKO PO, IS VOIDING URINE W/O DIFFICULTY, HAD 1 BM THIS SHIFT. PT UP OOB W/FWW+1 ASSIST, CHEKO WELL. IMMOBILIZER IN PLACE TO RLE. PT USING CALL LIGHT FOR ASSISTANCE.
[2023-04-26 06:58] VITALS: BP 114/68
[2023-04-26 14:52] VITALS: BP 133/51
--- NOTE | 2023-04-26 16:17 | NUR ---
SHIFT SUMMARY POD 4 I&D NUMBER 2 WOUND VAC CANISTER CHANGED AT APPROX 1300 THIS AFTERNOON. MINIMAL DRAINAGE IN CANISTER AT THIS TIME. PT UP IN CHAIR FOR MOST OF DAY. NEEDS FREQUENT REMINDERS TO CALL AND FOLLOW PRECAUTIONS WHEN UP AND MOVING. DENIES PAIN T/O SHIFT. PLAN IS FOR PATIENT TO DC TO SNF OR [facility]. ONCE CLEARED.
[2023-04-26 19:27] VITALS: BP 149/62
[2023-04-27 04:30] VITALS: BP 148/68
--- NOTE | 2023-04-27 04:54 | NUR ---
SHIFT SUMMARY A/O X3- NO PAIN REPORTED THROUGHOUT SHIFT. SBA TO BSC, VOIDING WELL. VSS. TOLERATING PO INTAKE. REPORTS BM X2 DURING DAY SHIFT YESTERDAY. NO ACUTE CHANGES. PLEASANT AND COOPERATIVE W/ CARE. WILL REPORT TO ONCOMING RN.
[2023-04-27 05:50] LABS: Vancomycin, Random 14.4 ug/mL
[2023-04-27 07:07] VITALS: BP 125/61
[2023-04-27] MEDS ORDERED: ACET500 PO (11:56)
[2023-04-27] MEDS ORDERED: BISA10S PR (11:56)
[2023-04-27] MEDS ORDERED: DOCU100 PO (11:57)
[2023-04-27] MEDS ORDERED: BENADRYL25 MG PO (11:57)
[2023-04-27] MEDS ORDERED: OXAYDO5 M2 PO (11:57)
[2023-04-27] MEDS ORDERED: SENNA LAXATIVE8.6 MG PO (11:57)
[2023-04-27] MEDS ORDERED: VANCOMYCIN HCL1 G1 IV (11:59)
[2023-04-27] MEDS ORDERED: VISBIOME 112.51 EACH PO (12:01)
[2023-04-27 14:14] VITALS: BP 125/67
[2023-04-27 14:27] LABS: SARS-Cov-2 (COVID-19) PCR, MMC NEGATIVE (NEGATIVE)
--- NOTE | 2023-04-27 18:31 | NUR ---
DISCHARGE SUMMARY POD5 I&D #2 ON HER R HIP, A/OX4, VSS, TOLERATING PO, PAIN WELL MANAGED, AMBULATES WITH SBA/FWW/GB. REPORT CALLED TO [facility], PACKET WITH ORDERS PROVIDED TO TRANSPORT. PT LEFT WITH NO ISSUES. UVR NOTIFIED OF HER PICC AND WOUND VAC.
== END 2023-04-27 18:26 | DRG 467 ==
LOC: ER 10:45 → SURS 16:15
PROVIDERS: Internal Medicine; Orthopaedic Surgery; Student in an Organized Health Care Education/Training Program; ADMIT Internal Medicine
PROC: 4A133R1 Monitoring of Arterial Saturation, Peripheral, Percutaneous Approach (ICD-10-PCS; 2023-04-18)
PROC: 0SP90JZ Removal of Synthetic Substitute from Right Hip Joint, Open Approach (ICD-10-PCS; 2023-04-19)
PROC: 0SP909Z Removal of Liner from Right Hip Joint, Open Approach (ICD-10-PCS; 2023-04-19)
PROC: 0SUA09Z Supplement Right Hip Joint, Acetabular Surface with Liner, Open Approach (ICD-10-PCS; 2023-04-19)
PROC: 0S990ZZ Drainage of Right Hip Joint, Open Approach (ICD-10-PCS; 2023-04-19)
PROC: 3E0U029 Introduction of Other Anti-infective into Joints, Open Approach (ICD-10-PCS; 2023-04-19)
PROC: 0SR906Z Replacement of Right Hip Joint with Oxidized Zirconium on Polyethylene Synthetic Substitute, Open Approach (ICD-10-PCS; principal; 2023-04-19 14:00)
PROC: 30233N1 Transfusion of Nonautologous Red Blood Cells into Peripheral Vein, Percutaneous Approach (ICD-10-PCS; 2023-04-21)
DX: T84.020A Dislocation of internal right hip prosthesis, initial encounter (principal); D62 Acute posthemorrhagic anemia; E87.1 Hypo-osmolality and hyponatremia; T81.49XA Infection following a procedure, other surgical site, initial encounter; M96.842 Postprocedural seroma of a musculoskeletal structure following a musculoskeletal system procedure; L03.115 Cellulitis of right lower limb; Z20.822 Contact with and (suspected) exposure to COVID-19; M21.761 Unequal limb length (acquired), right tibia; M10.9 Gout, unspecified; E78.00 Pure hypercholesterolemia, unspecified; E03.9 Hypothyroidism, unspecified; M19.90 Unspecified osteoarthritis, unspecified site; F03.90 Unspecified dementia, unspecified severity, without behavioral disturbance, psychotic disturbance, mood disturbance, and anxiety; F41.9 Anxiety disorder, unspecified; D63.1 Anemia in chronic kidney disease; K21.9 Gastro-esophageal reflux disease without esophagitis; G89.29 Other chronic pain; E83.42 Hypomagnesemia; E66.9 Obesity, unspecified; N18.31 Chronic kidney disease, stage 3a; M54.9 Dorsalgia, unspecified; M72.2 Plantar fascial fibromatosis; Z96.653 Presence of artificial knee joint, bilateral; Z90.49 Acquired absence of other specified parts of digestive tract; Z98.890 Other specified postprocedural states; Z68.30 Body mass index [BMI] 30.0-30.9, adult; Z90.710 Acquired absence of both cervix and uterus; Z98.49 Cataract extraction status, unspecified eye; Z79.891 Long term (current) use of opiate analgesic; Z79.890 Hormone replacement therapy; Z79.899 Other long term (current) drug therapy; W19.XXXA Unspecified fall, initial encounter; Y83.1 Surgical operation with implant of artificial internal device as the cause of abnormal reaction of the patient, or of later complication, without mention of misadventure at the time of the procedure
CPT/HCPCS: 27265; 36415; 36430; 36569; 51702; 72170; 73502; 80048; 80053; 80069; 80202; 82565; 82803; 83735; 85014; 85018; 85025; 85027; 85651; 86140; 86850; 86900; 86901; 86923; 87070; 87075; 87205; 89051; 93005; 93010; 94760; 96361-59; 96372; 96374-59; 96375-59; 96376-59; 97110; 97116; 97116-CQ; 97162; 97166; 97530; 97535; 99284-25; A9270; C1713; C1751; C1776; G0378; J0171; J0690; J0735; J1100; J1170; J1650; J1885; J1940; J2250; J2370; J2405; J2704; J2710; J2795; J3010; J3370; J3475; J7030; J7050; J7120; P9016; U0002

== ENCOUNTER → 2023-11-19 | Outpatient (CLI) | payer MEDICARE ==
[~2023-11-19] MED LIST changes: +ACET500 PO; +BENADRYL25 MG PO; +BISA10S PR; +DOCU100 PO; +OXAYDO5 M2 PO; +SENNA LAXATIVE8.6 MG PO; +VANCOMYCIN HCL1 G1 IV; +VISBIOME 112.51 EACH PO
[2023-11-22 18:47] LABS: Creatinine Urine 42.1 mg/dL (27.00-270.00); Microalbumin, Urine Quant. 14.8 mg/L (0.000-20.000); Protein, Urine Quantitative 32.1 mg/dL (0.0-11.9)
== END ==
LOC: LAB 12:54 → LAB SHORT 12:54
PROVIDERS: Internal Medicine Nephrology
DX: N18.4 Chronic kidney disease, stage 4 (severe) (principal); R10.9 Unspecified abdominal pain
CPT/HCPCS: 81050; 82043; 82570; 84156

== ENCOUNTER 2024-07-02 11:54 | Observation (INO) | payer MEDICARE ==
[~2024-07-02] VITALS: Ht 165.1 cm; Wt 88.0 kg
[2024-07-02] MEDS ORDERED: DiphenhydrAMINE HCl 50 MG/ML 1ML Vial IV ONE (12:15)
[2024-07-02] MEDS ORDERED: Prochlorperazine Edisylate 10 mg Vial IV ONE (12:15)
[2024-07-02] MEDS ORDERED: NS 1,000 ML IV SCH (12:20)
[2024-07-02 13:02] LABS: Source, Urine Clean Catch
[2024-07-02 13:07] LABS: Appearance, Urine Clear (Clear); Bilirubin, Urine Neg (Neg); Blood, Urine Neg (Neg); Color, Urine Yellow (P-Yellow); Glucose Qualitative, Urine Neg (Neg); Ketones, Urine Neg (Neg); Leukocyte Esterase, Urine Neg (Neg); Nitrite, Urine Neg (Neg); Protein, Urine Neg (Neg); Urobilinogen, Urine NORM (Normal)
[2024-07-02 13:08] LABS: BASOPHILS ABSOLUTE AUTO 0.05 K/mm3 (0.00-0.23); BASOPHILS PERCENT AUTO 1 % (0-2); EOSINOPHILS PERCENT AUTO 1 % (0-6); Hematocrit 35.2 % (33.0-51.0); Hemoglobin 11.7 g/dL (11.5-16.0); IMMATURE GRAN ABSOLUTE AUTO 0.03 K/mm3 (0.00-0.10); IMMATURE GRAN PERCENT AUTO 0 % (0-1); LYMPHOCYTES ABSOLUTE AUTO 1.49 K/mm3 (0.84-5.20); LYMPHOCYTES PERCENT AUTO 19 % (21-46); MONOCYTES ABSOLUTE AUTO 0.73 K/mm3 (0.16-1.47); MONOCYTES PERCENT AUTO 9 % (4-13); Mean Corpuscular HGB 29.3 pg (26.0-34.0); Mean Corpuscular HGB Conc 33.2 g/dL (31.5-36.5); Mean Corpuscular Volume 88 fL (80-100); Mean Platelet Volume 9.3 fL (9.1-12.4); NEUTROPHILS ABSOLUTE AUTO 5.66 K/mm3 (1.96-9.15); NEUTROPHILS PERCENT AUTO 70 % (41-73); Platelet Count 492 K/mm3 (150-400); RDW Coefficient Variation 15.2 % (11.7-14.2); White Blood Cell Count 8.06 K/mm3 (4.00-11.30)
[2024-07-02 13:29] LABS: Bun/Creatinine Ratio 13.4 (12.0-20.0); Calcium, Blood 9.1 mg/dL (8.5-10.1); Creatinine, Blood 0.82 mg/dL (0.40-1.00); Magnesium, Blood 1.5 mg/dL (1.6-2.4); Potassium, Blood 3.9 mmol/L (3.5-5.5)
[2024-07-02 13:45] LABS: Free Thyroxine 1.28 ng/dL (0.70-1.60); Thyroid Stimulating Hormone 1.02 uIU/mL (0.360-4.800)
[2024-07-02] MEDS ORDERED: Mag Sulfate 1 GM/D5% 100ML 100 ML IV STA (14:53)
[2024-07-02 15:29] LABS: Albumin, Blood 3.6 g/dL (3.4-5.0); Albumin/Globulin Ratio 1.1 (0.8-1.8); Bilirubin, Total 0.5 mg/dL (0.1-1.0); Bun/Creatinine Ratio 12.5 (12.0-20.0); Calcium, Blood 8.7 mg/dL (8.5-10.1); Creatinine, Blood 0.88 mg/dL (0.40-1.00); Globulin, Blood 3.3 g/dL (2.2-4.0); Potassium, Blood 3.7 mmol/L (3.5-5.5); Total Protein, Blood 6.9 g/dL (6.4-8.2)
[2024-07-02] MEDS ORDERED: HydrOXYzine Pamoate 25 MG Cap PO PRN (15:55)
[2024-07-02] MEDS ORDERED: Acetaminophen 325 MG TABLET PO PRN (15:55)
[2024-07-02] MEDS ORDERED: ClonazePAM 0.5 MG Tab PO SCH (16:00)
[2024-07-02] MEDS ORDERED: Sodium Chloride 1 GM TAB PO SCH (16:00)
[2024-07-02] MEDS ORDERED: Celecoxib 100 MG Cap PO SCH (17:00)
[2024-07-02] MEDS ORDERED: NS 1,000 ML IV ONE (17:05)
[2024-07-02] MEDS ORDERED: HYDHCL25 PO (18:57)
[2024-07-02] MEDS ORDERED: QUET300 PO (18:57)
[2024-07-02] MEDS ORDERED: OXYB5 PO (18:59)
[2024-07-02] MEDS ORDERED: TRAZ50 PO (18:59)
[2024-07-02] MEDS ORDERED: POTA10T PO (19:00)
[2024-07-02 20:58] VITALS: BP 180/96
[2024-07-02] MEDS ORDERED: oxyBUTYnin chloride 5 MG TAB PO SCH (21:00)
[2024-07-03] MEDS ORDERED: Calcium Carbonate 500 MG Tab Chew PO ONE (01:00)
[2024-07-03 01:52] VITALS: BP 151/74
--- NOTE | 2024-07-03 05:00 | NUR ---
Pt received to unit awake alert oriented. affect pleasant. Skin warm and dry. No distress noted. Pt oob up to the bathroom. gait steady. Pt c/o indigention. Medicated per dr orders. pt reports good relief of discomfort. Pt resting quietly in bed at this time. No distress noted.
[2024-07-03] MEDS ORDERED: Levothyroxine Sodium 0.075 MG Tab PO SCH (06:00)
[2024-07-03 07:31] VITALS: BP 178/83
[2024-07-03] MEDS ORDERED: Enoxaparin 40 MG/0.4 ML SYR SC SCH (09:00)
[2024-07-03] MEDS ORDERED: Sennosides 8.6 MG Tab PO SCH (09:00)
[2024-07-03] MEDS ORDERED: DULoxetine HCL 60 MG Capsule DR PO SCH (09:00)
[2024-07-03] MEDS ORDERED: Allopurinol 100 MG Tab PO SCH (09:00)
[2024-07-03 09:08] LABS: Bun/Creatinine Ratio 12.1 (12.0-20.0); Creatinine, Blood 0.83 mg/dL (0.40-1.00); Potassium, Blood 3.9 mmol/L (3.5-5.5)
[2024-07-03] MEDS ORDERED: Acetaminophen325 M1 PO (13:15)
[2024-07-03] MEDS ORDERED: CELE100 PO (13:18)
[2024-07-03] MEDS ORDERED: Clonazepam0.25 MG PO (13:21)
--- NOTE | 2024-07-03 14:08 | NUR ---
DC-1400 PT LEFT IN STABLE CONDITION WITH ALL BELONGINGS WITH HER DRIVING HER HOME. HARD SCRIPT GIVEN TO PT AND COPY MADE AND PLACED IN CHART.
== END 2024-07-03 13:58 | disposition home or self-care (01) ==
LOC: ER 11:54 → ERHOLD 11:55 → MEDS 11:55
PROVIDERS: Emergency Medicine; ADMIT Internal Medicine
DX: E87.1 Hypo-osmolality and hyponatremia (principal); E87.20 Acidosis, unspecified; F41.9 Anxiety disorder, unspecified; F03.90 Unspecified dementia, unspecified severity, without behavioral disturbance, psychotic disturbance, mood disturbance, and anxiety; M10.9 Gout, unspecified; E03.9 Hypothyroidism, unspecified; K21.9 Gastro-esophageal reflux disease without esophagitis; N18.31 Chronic kidney disease, stage 3a; Z79.899 Other long term (current) drug therapy
CPT/HCPCS: 36415; 70450; 71046; 80048; 80053; 81003; 82010; 83605; 83735; 84439; 84443; 84484; 85025; 93005; 93010; 96361; 96365; 96366; 96375; 97116; 97162; 99285-25; A9270; G0378; J0780; J1200; J3475; J7030

== ENCOUNTER → 2025-10-25 | Outpatient (CLI) | payer MEDICARE ==
[~2025-10-25] MED LIST changes: +Acetaminophen325 M1 PO; +CELE100 PO; +Clonazepam0.25 MG PO; +HYDHCL25 PO; +TRAZ50 PO
[2025-10-25 15:49] LABS: Anion Gap 10.0 mmol/L (3-11); Blood Urea Nitrogen 11.0 mg/dL (8-24); CO2, Blood 25.0 mmol/L (21-32); Calcium, Blood 9.6 mg/dL (8.5-10.1); Chloride, Blood 100.0 mmol/L (98-108); Creatinine, Blood 1.1 mg/dL (0.40-1.00); Glucose, Blood 95.0 mg/dL (70-99); Potassium, Blood 4.5 mmol/L (3.5-5.5); Sodium, Blood 130.0 mmol/L (136-145)
== END ==
LOC: LAB SHORT 12:56 → LAB 12:56
PROVIDERS: Student in an Organized Health Care Education/Training Program
DX: M25.551 Pain in right hip (principal)
CPT/HCPCS: 80048